=== PATIENT | male | born 1950 | race Caucasian/White ===

== ENCOUNTER 2021-08-08 08:07 | Day surgery (SDC) | payer MEDICARE, BC ==
[~2021-08-08] VITALS: Ht 172.7 cm; Wt 84.0 kg
[2021-08-08 08:23] VITALS: BP 156/77
[2021-08-08] MEDS ORDERED: MIDAZolam 1 MG/ML 5ML VIAL ONE (08:33)
[2021-08-08] MEDS ORDERED: fentaNYL/PF 50MCG/1 ML 2ML syringe ONE (08:33)
[2021-08-08] MEDS ORDERED: BUDE10.2 INH (08:44)
[2021-08-08] MEDS ORDERED: ALBU8.5H17 INH (08:45)
[2021-08-08] MEDS ORDERED: LIDOcaine Viscous 15ml cup ONE (08:52)
[2021-08-08 09:51] VITALS: BP 99/45
[2021-08-08 10:01] VITALS: BP 108/49
[2021-08-08 10:11] VITALS: BP 111/66
[2021-08-08 10:21] VITALS: BP 106/45
== END 2021-08-08 10:35 | disposition home or self-care (01) ==
LOC: GI LAB 08:07
PROVIDERS: ATTEND Internal Medicine Gastroenterology
DX: D50.0 Iron deficiency anemia secondary to blood loss (chronic) (principal); K22.2 Esophageal obstruction; K44.9 Diaphragmatic hernia without obstruction or gangrene; K29.50 Unspecified chronic gastritis without bleeding; K31.811 Angiodysplasia of stomach and duodenum with bleeding; K55.21 Angiodysplasia of colon with hemorrhage; J44.9 Chronic obstructive pulmonary disease, unspecified; F17.210 Nicotine dependence, cigarettes, uncomplicated; Z88.0 Allergy status to penicillin; Z88.5 Allergy status to narcotic agent
CPT/HCPCS: 43239; 43255; 45382; 88305; 99153; G0500; J2250; J3010; J7040; Z7512; 43227; 44391; 99152; A4620

== ENCOUNTER 2021-11-20 11:35 | Day surgery (SDC) | payer MEDICARE, BC ==
[2021-11-20] VITALS (10 sets, daily range): BP systolic 100–163; BP diastolic 41–98
[~2021-11-20] VITALS: Ht 172.7 cm; Wt 79.7 kg
[~2021-11-20 11:35] MED LIST: ALBU8.5H17 INH; BUDE10.2 INH
[2021-11-20] MEDS ORDERED: ARGI500T PO (12:00)
[2021-11-20] MEDS ORDERED: ALBU90AE (12:00)
[2021-11-20] MEDS ORDERED: LORazepam 0.5 MG tablet PO PRN (12:05)
[2021-11-20] MEDS ORDERED: diphenhydrAMINE 25mg capsule PO PRN (12:05)
[2021-11-20] MEDS ORDERED: normal saline 1,000 ML IV SCH (12:05)
[2021-11-20] MEDS ORDERED: verapamil 2.5 mg/ml inj IV ONE ×3 (13:06→13:11)
[2021-11-20] MEDS ORDERED: nitroGLYCERIN-Tridil 50MG/D5W 250 ML IV ONE (13:06)
[2021-11-20] MEDS ORDERED: fentaNYL/PF 50MCG/1 ML 2ML syringe ONE (13:07)
[2021-11-20] MEDS ORDERED: midazolam 1 mg/ML 2ml injection ONE (13:07)
[2021-11-20] MEDS ORDERED: LIDOCAINE 1% w/preservative (10 MG/ML) inj. 10mL VIAL ONE (13:07)
[2021-11-20] MEDS ORDERED: heparin 1,000unit/ml 10ml vial 10 ML ONE (13:07)
[2021-11-20] MEDS ORDERED: iohexol 350MG/ML 100ml bottle IV ONE (13:07)
[2021-11-20] MEDS ORDERED: atropine 0.1mg/ml 10ml syringe ONE (14:22)
--- NOTE | 2021-11-20 14:45 | NUR ---
Patient returned from [employer] with HR in 120's. Patient c/o of chest tightness. Stat EKG ordered and Dr. Wallis notified. No new orders at this time. Will continue to monitor.
[2021-11-20] MEDS ORDERED: ondansetron/PF 4mg/2ml inj IV PRN (15:20)
[2021-11-20] MEDS ORDERED: normal saline 1000ml 1,000 ML IV SCH (15:20)
[2021-11-20] MEDS ORDERED: OXAZEpam 15mg capsule PO PRN (15:20)
[2021-11-20] MEDS ORDERED: proCHLORperazine 10 MG/2 ml inj IV PRN (15:20)
[2021-11-20] MEDS ORDERED: HYDROcodone/acetaminophen 10/325mg tab PO PRN (15:20)
[2021-11-20] MEDS ORDERED: HYDROcodone/acetaminophen 5mg/325mg tablet PO PRN (15:20)
[2021-11-20] MEDS ORDERED: metoprolol tartrate 1mg/ml inj IV ONE ×2 (15:35→16:45)
--- NOTE | 2021-11-20 15:36 | NUR ---
Dr. Wallis notified that patient's HR remains in 120's. New order for 5 mg IV lopressor x 1.
--- NOTE | 2021-11-20 16:48 | NUR ---
Notified Dr. Wallis patient's HR still in the 90-100's. New order for 5 mg IV lopressor and EKG.
--- NOTE | 2021-11-20 17:00 | NUR ---
Faxed EKG to mechanical shop laborer. Patient in a-flutter. New order for discharge medication for patient. Sotalol 40 mg PO BID. New prescription phoned into [facility] - [place].
== END 2021-11-20 18:30 | disposition home or self-care (01) ==
LOC: SSTAY O 11:35
PROVIDERS: ATTEND Internal Medicine Interventional Cardiology
DX: R94.39 Abnormal result of other cardiovascular function study (principal); J44.9 Chronic obstructive pulmonary disease, unspecified; D50.9 Iron deficiency anemia, unspecified; E78.5 Hyperlipidemia, unspecified; Z98.890 Other specified postprocedural states; Z88.0 Allergy status to penicillin; Z88.5 Allergy status to narcotic agent; Z88.8 Allergy status to other drugs, medicaments and biological substances
CPT/HCPCS: 93005; 93458; 99152; C1769; C1894; J1644; J2250; J3010; J3490; Q0163; Q9967; 99153; A4620; A5120; J0461